=== PATIENT | female | born 1955 | race Two or more races ===

== ENCOUNTER 2025-02-11 10:19 | Inpatient (IN) | payer MEDICARE, MEDICAID ==
[~2025-02-11] VITALS: Ht 152.4 cm; Wt 67.6 kg
[2025-02-11] VITALS (20 sets, daily range): BP systolic 123–189; BP diastolic 55–105; PULSE 58–113; RESP 15–23; TEMP 36.3–36.4; O2SAT 93–100
[~2025-02-11 10:19] MED LIST: ATOR10TA69 PO; GLIM2TAB30; LEVO100T9 PO; LOSA100T33; SITA1TAB8 PO
[2025-02-11] MEDS: PIPERACILLIN/TAZO 3.375G/50ML 50 ML IV ONE (10:30)
[2025-02-11] MEDS: VANCOMYCIN 1G PREMIX 200 ML IV ONE (10:30)
[2025-02-11 11:03] LABS: HEMATOCRIT. 42.7 % (36.0-48.0); HEMOGLOBIN. 14.2 g/dL (12.0-16.0); MEAN CORPUSCULAR HEMOGLOBIN 29.7 pg (28.0-32.0); MEAN CORPUSCULAR HGB CONC 33.2 g/dL (31.0-37.0); MEAN CORPUSCULAR VOLUME 89.7 fL (81.0-99.0); MEAN PLATELET VOLUME 9.7 fl (7.4-10.4); PLATELET 198 x1000/uL (130-400); RED BLOOD CELL COUNT 4.77 mill/uL (4.2-5.4); RED CELL DISTRIBUTION WIDTH 14.5 % (11.6-14.6); WHITE BLOOD COUNT 12.2 x1000/uL (4.5-11.0)
[2025-02-11] MEDS: SODIUM CHLORIDE 0.9% (SEPSIS BOLUS) IV ONE (11:03)
[2025-02-11 11:07] LABS: DIFFERENTIAL COMMENT 1
[2025-02-11 11:09] LABS: CHLORIDE 98 mEq/L (98-107); POTASSIUM 3.2 mEq/L (3.5-5.1); SODIUM 136 mEq/L (136-145)
[2025-02-11 11:10] LABS: CALCIUM 8.5 mg/dL (8.7-10.4); CARBON DIOXIDE 30 mEq/L (21-32)
[2025-02-11 11:13] LABS: PROTHROMBIN TIME 10.6 sec (9.6-11.0)
[2025-02-11 11:15] LABS: CREATININE 0.6 mg/dL (0.6-1.0); ETHANOL BLOOD < 10 mg/dL (<10); GLUCOSE 233 mg/dL (70-105); TROPONIN I HIGH SENSITIVITY 18 ng/L (3.0-34); UREA NITROGEN BLOOD 12 mg/dL (9-23)
[2025-02-11 11:16] LABS: ALANINE AMINOTRANSFERASE 12 IU/L (10-49); LACTATE DEHYDROGENASE 203 IU/L (120-246)
[2025-02-11 11:17] LABS: ALBUMIN 3.8 g/dL (3.2-4.8); ASPARTATE AMINOTRANSFERASE 16 IU/L (<34); BILIRUBIN DIRECT 0.3 mg/dL (<=3.0); BILIRUBIN TOTAL 1.1 mg/dL (0.1-1.0); CREATINE KINASE 65 IU/L (34-145); PROTEIN TOTAL 6.8 g/dL (6.0-8.3)
[2025-02-11 11:23] LABS: AMMONIA < 17 uMol/L (<32)
[2025-02-11 12:04] LABS: PLATELET ESTIMATE NORMAL
[2025-02-11] MEDS ORDERED: NOREPINEPHRINE 8 MG in DEXT 5% WATER 242 ML IV PRN (12:30)
[2025-02-11] MEDS: SODIUM CHLORIDE 0.9% 500 ML IV ONE (12:40)
[2025-02-11] MEDS: NOREPINEPHRINE 8MG/250ML PMX 250 ML IV PRN (12:59)
[2025-02-11] MEDS: DIPHENHYDRAMINE 50MG/ML VIAL IV ONE (13:42)
[2025-02-11] MEDS: HALOPERIDOL LACTATE 5MG/ML VIAL IM ONE (13:42)
[2025-02-11] MEDS ORDERED: LORAZEPAM 2MG/ML INJ IV ONE (14:15)
[2025-02-11 14:32] LABS: *AMPHETAMINES SCREEN URINE NEGATIVE (NEGATIVE); *BARBITURATES SCREEN URINE NEGATIVE (NEGATIVE); *BENZODIAZEPINES SCREEN URINE NEGATIVE (NEGATIVE); *COCAINE SCREEN URINE NEGATIVE (NEGATIVE); CANNABINOID URINE SCREEN NEGATIVE (NEGATIVE); ECSTASY MDMA SCREEN URINE NEGATIVE (NEGATIVE); METHADONE URINE SCREEN NEGATIVE (NEGATIVE); OPIATES URINE SCREEN NEGATIVE (NEGATIVE); PHENCYCLIDINE URINE SCREEN NEGATIVE (NEGATIVE)
[2025-02-11 14:33] LABS: CLARITY URINE CLOUDY (CLEAR); COLOR URINE YELLOW (YELLOW); GLUCOSE URINE NEGATIVE (NEGATIVE); KETONES URINE NEGATIVE (NEGATIVE); LEUKOCYTE ESTERASE URINE TRACE (NEGATIVE); NITRITE URINE NEGATIVE (NEGATIVE); OCCULT BLOOD URINE TRACE (NEGATIVE); PROTEIN URINE TRACE (NEGATIVE); SPECIFIC GRAVITY URINE 1.004 (1.005-1.030); UROBILINOGEN URINE 0.2 E.U./dL (0.2-1.0)
[2025-02-11] MEDS: LORAZEPAM 2MG/ML UD SYRINGE IV SCH (14:43)
[2025-02-11 14:44] LABS: BACTERIA URINE 3+; SQUAMOUS EPITHELIAL CELL URINE FEW /lpf (RARE/1+); YEAST URINE NONE SEEN
[2025-02-11] MEDS: IOHEXOL-350 100 ML BOTTLE ONE (15:26)
[2025-02-11] MEDS ORDERED: ACETAMINOPHEN 325MG TABLET PO PRN (15:30)
[2025-02-11] MEDS ORDERED: ONDANSETRON HCL 4MG/2ML INJ IV PRN (15:30)
[2025-02-11] MEDS ORDERED: IPRATROPIUM/ALBUTEROL 0.5-3(2.5)MG/3ML NEB NEB PRN (15:30)
[2025-02-11] MEDS ORDERED: SODIUM CHLORIDE 0.9% 1,000 ML IV SCH (15:30)
[2025-02-11] MEDS ORDERED: GUAIFENESIN 200MG/10ML SUGAR FREE UDC PO PRN (15:30)
[2025-02-11] MEDS ORDERED: HYDROCODONE/ACETAMINOPHEN 5/325MG TABLET PO PRN (15:30)
[2025-02-11] MEDS: POTASSIUM CHLORIDE 20MEQ TABLET SR PO SCH (16:00)
[2025-02-11] MEDS ORDERED: IPRATROPIUM/ALBUTEROL 0.5-3(2.5)MG/3ML NEB HHN PRN (16:00)
[2025-02-11] MEDS ORDERED: ENOXAPARIN 40MG/0.4ML SYR SUBCUT SCH (16:00)
[2025-02-11] MEDS ORDERED: NALOXONE HCL 0.4MG/ML VIAL IV PRN (16:00)
[2025-02-11] MEDS ORDERED: DEXTROSE 50% WATER 50ML SYRINGE IV PRN (16:15)
[2025-02-11] MEDS ORDERED: BLOOD SUGAR DIAGNOSTIC STRIP TEST SCH (17:00)
[2025-02-11] MEDS ORDERED: DEXT 5%/0.9% NACL 1,000 ML IV SCH (17:15)
[2025-02-11] MEDS ORDERED: MORPHINE SULFATE 4 MG/ML INJ (FOR IV/IM USE) IV PRN (17:30)
[2025-02-11 17:39] LABS: BG BASE EXCESS 5.1 mmol/L (-2.0-3.0); BG DEOXYHEMOGLOBIN 5.2 % (0.0-5.0); BG FRACTION INSPIRED OXYGEN 21; BG HCO3 ACT 29.4 mmol/L (21.0-28.0); BG OXYGEN SATURATION 94.7 % (94.0-98.0); BG OXYHEMOGLOBIN 93.8 % (94.0-98.0); BG PCO2 42.1 mmHg (32.0-45.0); BG PH 7.462 (7.350-7.450); BG PO2 70.1 mmHg (83.0-108.0); BG SAMPLE SITE LEFT RADIAL; BG TOTAL HEMOGLOBIN 15.5 g/dL (12.0-16.0); BG VENT MODE ROOM AIR
[2025-02-11] MEDS: HALOPERIDOL LACTATE 5MG/ML VIAL IM NR (17:42)
[2025-02-11] MEDS: SODIUM CHLORIDE 0.9% 1,000 ML IV SCH (17:52)
[2025-02-11] MEDS: ENOXAPARIN 60MG/0.6ML SYR SUBCUT SCH (17:52)
[2025-02-11] MEDS: INSULIN LISPRO 100 UNITS/ML SUBCUT SCH (18:00)
[2025-02-11] MEDS ORDERED: INSULIN LISPRO 100 UNITS/ML SUBCUT SCH (18:20)
[2025-02-11] MEDS: HYDRALAZINE 20MG/ML VIAL IV PRN (19:52)
[2025-02-11] MEDS: ATORVASTATIN CALCIUM 40MG TABLET PO SCH (21:00)
[2025-02-11] MEDS: BLOOD SUGAR DIAGNOSTIC STRIP TEST SCH (21:00)
[2025-02-11] MEDS ORDERED: HALOPERIDOL LACTATE 5MG/ML VIAL IM PRN (22:00)
[2025-02-11] MEDS ORDERED: IOHEXOL-350 100 ML BOTTLE ONE (22:25)
[2025-02-11] MEDS: PANTOPRAZOLE SODIUM 40 MG/VIAL IV SCH (23:02)
[2025-02-11] MEDS: PIPERACILLIN/TAZO 3.375G/50ML 50 ML IV SCH (23:04)
[2025-02-11] MEDS: INSULIN GLARGINE 100 UNITS/ML SUBCUT SCH (23:18)
[2025-02-11] MEDS: VANCOMYCIN 750MG/150ML (BAXTER) IV SCH (23:31)
[2025-02-12] VITALS (35 sets, daily range): BP systolic 117–171; BP diastolic 36–88; PULSE 56–105; RESP 12–27; TEMP 36.3–37.1; O2SAT 94–100
[2025-02-12 01:16] LABS: TROPONIN I HIGH SENSITIVITY 59 ng/L (3.0-34)
[2025-02-12 05:32] LABS: BASOPHILS % 0.3 % (0.0-2.0); EOSINOPHILS % 0.1 % (0.0-5.0); HEMATOCRIT. 45.6 % (36.0-48.0); HEMOGLOBIN. 14.7 g/dL (12.0-16.0); LYMPHOCYTES % 19.8 % (20.0-50.0); MEAN CORPUSCULAR HEMOGLOBIN 29.4 pg (28.0-32.0); MEAN CORPUSCULAR HGB CONC 32.3 g/dL (31.0-37.0); MEAN CORPUSCULAR VOLUME 91.1 fL (81.0-99.0); MEAN PLATELET VOLUME 9.9 fl (7.4-10.4); MONOCYTES % 4.4 % (2.0-8.0); NEUTROPHILS % 75.4 % (40.0-76.0); PLATELET 220 x1000/uL (130-400); RED BLOOD CELL COUNT 5.01 mill/uL (4.2-5.4); RED CELL DISTRIBUTION WIDTH 14.7 % (11.6-14.6); WHITE BLOOD COUNT 10.9 x1000/uL (4.5-11.0)
[2025-02-12 06:18] LABS: CHLORIDE 105 mEq/L (98-107); POTASSIUM 3.2 mEq/L (3.5-5.1); SODIUM 143 mEq/L (136-145)
[2025-02-12 06:19] LABS: CALCIUM 8.8 mg/dL (8.7-10.4); CARBON DIOXIDE 28 mEq/L (21-32)
[2025-02-12 06:24] LABS: CREATININE 0.7 mg/dL (0.6-1.0); GLUCOSE 163 mg/dL (70-105); UREA NITROGEN BLOOD 11 mg/dL (9-23)
[2025-02-12 06:26] LABS: ALANINE AMINOTRANSFERASE 12 IU/L (10-49); ALBUMIN 3.8 g/dL (3.2-4.8); ASPARTATE AMINOTRANSFERASE 22 IU/L (<34); BILIRUBIN DIRECT 0.3 mg/dL (<=3.0); PHOSPHORUS 3.5 mg/dL (2.5-4.9)
[2025-02-12 06:27] LABS: FOLIC ACID (FOLATE) SERUM 9.94 ng/mL (>5.38); PROTEIN TOTAL 6.9 g/dL (6.0-8.3)
[2025-02-12 06:28] LABS: T4 FREE 1.14 ng/dL (0.89-1.76); THYROID STIMULATING HORMONE 3.67 uIU/mL (0.55-4.78)
[2025-02-12 06:47] LABS: VITAMIN B12 SERUM > 2000 pg/mL (211-911)
[2025-02-12] MEDS: LOSARTAN 50 MG TABLET PO SCH (08:11)
[2025-02-12 08:43] LABS: TROPONIN I HIGH SENSITIVITY 52 ng/L (3.0-34)
[2025-02-12] MEDS ORDERED: PANTOPRAZOLE SODIUM 40 MG/VIAL IV SCH (09:00)
[2025-02-12] MEDS: KCL 20MEQ/100ML PREMIX 100 ML IV SCH (13:36)
[2025-02-12] MEDS: MAGNESIUM 1 G PREMIX 100 ML IV ONE (17:03)
[2025-02-12] MEDS: CLONIDINE 0.1MG TABLET PO SCH (17:21)
[2025-02-12] MEDS: VANCOMYCIN 1GM PMX (XELLIA) 200 ML IV SCH (22:16)
[2025-02-12] MEDS: MELATONIN 3MG TABLET PO PRN (22:57)
[2025-02-13] VITALS: BP 124/58; PULSE 64; RESP 20; TEMP 36.4; O2SAT 97
[2025-02-13 04:00] VITALS: BP 133/66; PULSE 63; RESP 19; TEMP 36.4; O2SAT 96
[2025-02-13] MEDS: OXYMETAZOLINE HCL NASAL SPRAY 15ML BOTHNSTRLS SCH (05:43)
[2025-02-13] MEDS: LEVOTHYROXINE SODIUM 100MCG TABLET PO SCH (05:43)
[2025-02-13 07:35] LABS: BASOPHILS % 0.5 % (0.0-2.0); EOSINOPHILS % 3.7 % (0.0-5.0); HEMATOCRIT. 37.3 % (36.0-48.0); HEMOGLOBIN. 12.5 g/dL (12.0-16.0); LYMPHOCYTES % 32.2 % (20.0-50.0); MEAN CORPUSCULAR HEMOGLOBIN 30.3 pg (28.0-32.0); MEAN CORPUSCULAR HGB CONC 33.4 g/dL (31.0-37.0); MEAN CORPUSCULAR VOLUME 90.6 fL (81.0-99.0); MEAN PLATELET VOLUME 9.7 fl (7.4-10.4); MONOCYTES % 8.6 % (2.0-8.0); PLATELET 206 x1000/uL (130-400); RED BLOOD CELL COUNT 4.12 mill/uL (4.2-5.4); RED CELL DISTRIBUTION WIDTH 14.6 % (11.6-14.6); WHITE BLOOD COUNT 5.1 x1000/uL (4.5-11.0)
[2025-02-13 08:00] VITALS: BP 141/60; PULSE 61; RESP 18; TEMP 36.8; O2SAT 94
[2025-02-13 08:03] LABS: CARBON DIOXIDE 26 mEq/L (21-32); CHLORIDE 106 mEq/L (98-107); POTASSIUM 3.7 mEq/L (3.5-5.1); SODIUM 140 mEq/L (136-145)
[2025-02-13 08:04] LABS: CALCIUM 8.5 mg/dL (8.7-10.4)
[2025-02-13 08:09] LABS: CREATININE 0.6 mg/dL (0.6-1.0); GLUCOSE 126 mg/dL (70-105); UREA NITROGEN BLOOD 13 mg/dL (9-23)
[2025-02-13 08:11] LABS: PHOSPHORUS 2.7 mg/dL (2.5-4.9)
[2025-02-13] MEDS: PANTOPRAZOLE SODIUM 40 MG/VIAL IV SCH (08:56)
[2025-02-13] MEDS: LOSARTAN 100 MG TABLET PO SCH (08:56)
[2025-02-13 11:58] VITALS: BP 140/35; PULSE 64; RESP 18; TEMP 36.5; O2SAT 99
[2025-02-13 16:00] VITALS: BP 161/63; PULSE 64; RESP 18; TEMP 36.8; O2SAT 99
[2025-02-13] MEDS: CLONIDINE 0.1MG TABLET PO PRN (18:27)
[2025-02-13] MEDS ORDERED: MELATONIN 3MG TABLET PO SCH (21:00)
[2025-02-14] VITALS: BP 146/50; PULSE 82; RESP 20; TEMP 36.3; O2SAT 96
[2025-02-14 08:00] VITALS: BP 160/61; PULSE 61; RESP 18; TEMP 37.1; O2SAT 99
[2025-02-14 09:55] LABS: BASOPHILS % 1.1 % (0.0-2.0); HEMATOCRIT. 39.2 % (36.0-48.0); HEMOGLOBIN. 12.8 g/dL (12.0-16.0); LYMPHOCYTES % 28.4 % (20.0-50.0); MEAN CORPUSCULAR HGB CONC 32.7 g/dL (31.0-37.0); MEAN CORPUSCULAR VOLUME 91.8 fL (81.0-99.0); MEAN PLATELET VOLUME 9.5 fl (7.4-10.4); MONOCYTES % 6.6 % (2.0-8.0); NEUTROPHILS % 60.9 % (40.0-76.0); PLATELET 206 x1000/uL (130-400); RED BLOOD CELL COUNT 4.27 mill/uL (4.2-5.4); RED CELL DISTRIBUTION WIDTH 14.3 % (11.6-14.6)
[2025-02-14 10:05] LABS: CHLORIDE 103 mEq/L (98-107); POTASSIUM 3.3 mEq/L (3.5-5.1); SODIUM 138 mEq/L (136-145)
[2025-02-14 10:06] LABS: CALCIUM 8.3 mg/dL (8.7-10.4); CARBON DIOXIDE 27 mEq/L (21-32)
[2025-02-14 10:11] LABS: CREATININE 0.7 mg/dL (0.6-1.0); GLUCOSE 202 mg/dL (70-105); UREA NITROGEN BLOOD 11 mg/dL (9-23)
[2025-02-14 12:37] VITALS: BP 164/56; PULSE 56; RESP 20; TEMP 37.1
[2025-02-14] MEDS: POTASSIUM CHLORIDE 20MEQ TABLET SR PO SCH (12:39)
[2025-02-14 16:50] VITALS: BP 172/44; PULSE 52; RESP 20; TEMP 37.2; O2SAT 93
[2025-02-14 20:00] VITALS: BP 148/63; PULSE 52; RESP 18; TEMP 36.4; O2SAT 93
[2025-02-15] VITALS: BP 180/70; PULSE 52; RESP 19; TEMP 36.4
[2025-02-15 02:15] VITALS: BP 139/70; RESP 20
[2025-02-15 04:00] VITALS: BP 169/74; PULSE 51; RESP 20; TEMP 36.2
[2025-02-15 08:00] VITALS: BP 133/73; PULSE 55; RESP 18; TEMP 36.6; O2SAT 100
[2025-02-15] MEDS: FAMOTIDINE 20MG/2ML VIAL IV SCH (08:54)
[2025-02-15] MEDS ORDERED: CEFD300C3 MT (11:23)
[2025-02-15] MEDS ORDERED: APIX5TAB MT (11:23)
[2025-02-15] MEDS ORDERED: INSU100I28 SQ (11:23)
[2025-02-15] MEDS ORDERED: LIP40 PO (11:23)
[2025-02-15] MEDS ORDERED: LOSA100T33 PO (11:23)
[2025-02-15 12:00] VITALS: BP 129/84; PULSE 60; RESP 20; TEMP 36.7; O2SAT 96
[2025-02-15 12:50] VITALS: BP 133/73; PULSE 55; TEMP 97.8; O2SAT 100
== END 2025-02-15 17:31 | disposition home health service (06) | DRG 871 ==
LOC: ER 10:19 → MICUSO 14:24 → EDBEDREQ 14:29 → EDBEDREQSVC 14:29 → 7WST 02-12 18:13
PROVIDERS: ADMIT Internal Medicine; ATTEND Internal Medicine
DX: A41.9 Sepsis, unspecified organism (principal); G92.8 Other toxic encephalopathy; J96.01 Acute respiratory failure with hypoxia; N39.0 Urinary tract infection, site not specified; I48.20 Chronic atrial fibrillation, unspecified; I31.39 Other pericardial effusion (noninflammatory); F03.911 Unspecified dementia, unspecified severity, with agitation; I10 Essential (primary) hypertension; E78.5 Hyperlipidemia, unspecified; E11.65 Type 2 diabetes mellitus with hyperglycemia; E03.9 Hypothyroidism, unspecified; E87.6 Hypokalemia; Z79.4 Long term (current) use of insulin; Z88.8 Allergy status to other drugs, medicaments and biological substances; Z79.899 Other long term (current) drug therapy
CPT/HCPCS: 36415; 36600; 71045; 71275; 74018; 74174; 80048; 80076; 80202; 80305; 80320; 81003; 82140; 82375; 82550; 82607; 82746; 82805; 82962; 83036; 83605; 83615; 83735; 83880; 83930; 83935; 84100; 84145; 84439; 84443; 84484; 85025; 86850; 86900; 92610; 93005; 93306; 93970; 97161; 99291; J0360; J1200; J1308; J1630; J1650; J1815; J2060; J2470; J2543; J3370; J3475; J3480; J3490; J7030; J7040; Q9967; G0480